=== PATIENT | male | born 1955 | race Asian ===

== ENCOUNTER 2020-02-26 09:35 | Emergency (ER) | payer SELFPAY ==
[2020-02-26] MEDS ORDERED: Sodium Chloride 0.9% 10 ML Syringe FLUSH PRN (09:38)
[2020-02-26] MEDS ORDERED: Diphtheria,Pertussis(Acell),Tetanus Vaccine 0.5 ML SDV IM ONE (09:53)
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
[2020-02-26] MEDS ORDERED: Tetracaine HCl/PF 0.5% 4 ML Bottle EYELF ONE (10:02)
[2020-02-26 10:15] LABS: ANION GAP 12.5 mEq/L (7-13)
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
[2020-02-26] MEDS ORDERED: Ciprofloxacin 0.3% Ophth Soln 5 ML Bottle OP ONE (10:21)
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
[2020-02-26] MEDS ORDERED: Fluorescein 1 MG Ophth Strip EYELF ONE (11:10)
[2020-02-26] MEDS ORDERED: Proparacaine 0.5% Ophth Soln 15 ML Bottle EYELF ONE (11:11)
[2020-02-26] MEDS ORDERED: Tetracaine HCl/PF 0.5% 4 ML Bottle ONE (11:14)
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
[2020-02-27 07:58] LABS: PTT,PARTIAL THROMBOPLSTIN TIME 24.1 SEC (22.0-34.0)
[2020-02-27 07:59] LABS: CHLORIDE,CL 102 mmol/L (98-107); SODIUM,NA 139 mmol/L (136-145)
== END 2020-02-26 12:25 | disposition home or self-care (01) ==
LOC: DL.ED 09:35 → EDSEX 09:35 → DL.ED 12:25
DX: S01.112A Laceration without foreign body of left eyelid and periocular area, initial encounter (principal); S16.1XXA Strain of muscle, fascia and tendon at neck level, initial encounter; S50.312A Abrasion of left elbow, initial encounter; Z23 Encounter for immunization; V59.9XXA Occupant (driver) (passenger) of pick-up truck or van injured in unspecified traffic accident, initial encounter; Y92.410 Unspecified street and highway as the place of occurrence of the external cause
CPT/HCPCS: 36415; 70450; 71045; 72125; 72170; 80053; 80305; 80307; 81003; 83605; 83690; 84484; 85025; 85610; 85730; 90471; 90715; 99285; A9270